=== PATIENT | female | born 1980 | race Caucasian/White ===

== ENCOUNTER 2018-03-30 08:10 | Inpatient (IN) | payer OTHER ==
[2018-03-30 09:53] LABS: Hematocrit 39.9 % (30.3-42.9); Hemoglobin 12.9 gm/dl (10.1-14.3); Mean Corpuscular HGB Conc 33 % (30-34); Mean Corpuscular Hemoglobin 26 pg (28-32); Mean Corpuscular Volume 81 fl (79-97); Platelet Count 233 K/mm3 (140-440); Red Blood Count 4.93 M/mm3 (3.65-5.03); Red Cell Distribution Width 15.7 % (13.2-15.2)
[2018-03-30] MEDS: SUBLIMAZE IV PRN ×2 (09:54→13:30)
[2018-03-30] MEDS ORDERED: XYLOCAINE 2% INFILTRATI NR (10:00)
[2018-03-30] MEDS ORDERED: POLYCILLIN/NS 2 GM/100 ML 2 GM/100 ML BAG IV ONE (10:00)
[2018-03-30] MEDS ORDERED: PITOCin/NS 30 UNIT/500ML 30 UNITS/500 ML BAG IV SCH ×2 (10:00→11:00)
[2018-03-30] MEDS ORDERED: MINERAL OIL PO PRN ×2 (10:00→10:30)
[2018-03-30] MEDS ORDERED: STADOL IV PRN (10:00)
[2018-03-30] MEDS ORDERED: BRETHINE IVP PRN (10:00)
[2018-03-30] MEDS ORDERED: BRETHINE SUB-Q PRN (10:00)
[2018-03-30] MEDS ORDERED: LACTATED RINGERS 1,000 ML IV SCH (10:00)
--- NOTE | 2018-03-30 10:08 | History and Physical Report ---
History of Present Illness Date of examination: 03/30/18 Date of admission: 03/30/18 09:11 Chief complaint: Intense labor Pains History of present illness: Early entry to care, care complicated by AMA and abnormal Quad screen (+Downs): did not go to consult, also had a abnormal 1hour GTT; followed by a normal 3 hour GTT. 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) Family/Genetic History: other (sister: kidney dx) Social history: no significant social history, - Obstetrical History Expected Date of Delivery: 03/31/18 Actual Gestation: 39 Week(s) 6 Day(s) : 5 Para: 4 Hx # Term Pregnancies: 4 Number of Living Children: 4 Medications and Allergies Allergies Allergy/AdvReac Type Severity Reaction Status Date / Time No Known Allergies Allergy Verified 03/30/18 09:40 Home Medications Medication Instructions Recorded Confirmed Last Taken Type 19 Chewable 1 caplet PO DAILY 03/30/18 03/30/18 1 Day Ago History ~03/29/18 1 Active Meds: Active Medications Butorphanol Tartrate (Stadol) 2 mg IV Q2H PRN PRN Reason: Pain , Severe (7-10) Ephedrine Sulfate (Ephedrine Sulfate) 10 mg IV Q2M PRN PRN Reason: Hypotension Fentanyl (Sublimaze) 100 mcg IV Q2H PRN PRN Reason: Labor Pain Last Admin: 03/30/18 09:54 Dose: 100 mcg Ampicillin Sodium (Polycillin/Ns 2 Gm/100 Ml) 2 gm in 100 mls @ 100 mls/hr IV ONCE ONE; Protocol Stop: 03/30/18 10:59 Last Admin: 03/30/18 09:45 Dose: 100 mls/hr Lactated Ringer's (Lactated Ringers) 1,000 mls @ 125 mls/hr IV DIRECT IVORY Last Admin: 03/30/18 09:45 Dose: 125 mls/hr Oxytocin/Sodium Chloride (Pitocin/Ns 20 Unit/1000ml Drip) 20 units in 1,000 mls @ 125 mls/hr IV DIRECT IVORY Oxytocin/Sodium Chloride (Pitocin/Ns 30 Unit/500ml) 30 units in 500 mls @ 1 mls /hr IV TITR IVORY; Protocol Lidocaine (Xylocaine 2%) 20 ml INFILTRATI ONCE NR Stop: 03/31/18 09:59 Mineral Oil (Mineral Oil) 30 ml PO QHS PRN PRN Reason: Constipation Terbutaline Sulfate (Brethine) 0.25 mg SUB-Q ONCE PRN PRN Reason: Hyperstimulation/Hypertonicity Terbutaline Sulfate (Brethine) 0.25 mg IVP ONCE PRN PRN Reason: Hyperstimulation/Hypertonicity Review of Systems All systems: negative - Vital Signs Vital signs: Vital Signs Pulse Pulse Ox 97 H 97 03/30/18 08:31 03/30/18 08:31 Temp Pulse Resp BP Pulse Ox 98.2 F 88 18 119/63 97 03/30/18 08:43 03/30/18 09:44 03/30/18 09:54 03/30/18 09:44 03/30/18 08:46 - Physical Exam Breasts: Positive: normal Cardiovascular: Regular rate Abdomen: Positive: normal appearance, normal bowel sounds Genitourinary (Female): Positive: normal external genitalia, normal perenium Vagina: Positive: normal moisture Uterus: Positive: enlarged - Obstetrical FHR: category 1 Uterine Contraction Monitor Mode: External Cervical Dilatation: 6 (Vyx) Cervical Effacement Percentage: 70 station: -2 Uterine Contraction Frequency (min): 2-3 Uterine Contraction Pattern: Regular Uterine Tone Measurement Phase: Resting Uterine Contraction Intensity: Moderate Results Result Diagrams: 03/30/18 09:15 Abnormal lab results 03/30/18 Range/Units 09:15 WBC 16.2 H (4.5-11.0) K/mm3 MCH 26 L (28-32) pg RDW 15.7 H (13.2-15.2) % All other labs normal. Assessment and Plan A: IUP @ 39 6/7 Weeks Active Labor Category I Tracing AMA GBS Unknown P: Admit to L&D per Routine Orders GBS Prophylaxis Pitocin Augmentation
[2018-03-30] MEDS ORDERED: ZOFRAN IV PRN (10:30)
[2018-03-30] MEDS ORDERED: NARCAN 0.4 MG/1 ML IV PRN (10:30)
[2018-03-30] MEDS ORDERED: BENADRYL PO PRN (12:58)
[2018-03-30] MEDS ORDERED: TUCKS PAD TP PRN (12:58)
[2018-03-30] MEDS ORDERED: NORCO 5/325 PO PRN (12:58)
[2018-03-30] MEDS ORDERED: LANSINOH TP PRN (12:58)
[2018-03-30] MEDS ORDERED: DULCOLAX PR PRN (12:58)
[2018-03-30] MEDS ORDERED: SODIUM CHLORIDE FLUSH SYRINGE 10 ML IV NR (13:00)
--- NOTE | 2018-03-30 13:12 | Procedure Note ---
OB Delivery Note - Delivery Date of Delivery: 03/30/18 (1229) Surgeon: TANNER JOHNS Estimated blood loss: 200cc - Vaginal Delivery presentation: vertex Delivery position: OA Intrapartum events: none Delivery induction: none Delivery augmentation: pitocin Delivery monitor: external FHT, external uterine Route of delivery: Delivery placenta: spontaneous Delivery cord: nuchal cord, 3 umbilical vessels Episiotomy: none Delivery laceration: 1st degree Delivery repair: vicryl Anesthesia: local Delivery comments: of a live 9'7 male infant over a 1st degree perineal laceration under IV pain control with Apgars of 8 and 9 at 1229 on 03/30/2018. Nuchal cord x 2, easily manually reduced on the perineum prior to delivery of the anterior shoulder. directly to maternal abd/chest, skin to skin contact. Spontaneous delivery of placenta complete and intact with Mejia side presenting at 1238. Fundus is firm and midline located 4 below the U, Lochia is scant. Perineal laceration repaired with 2-0 Vicryl on a SH under local 1% Lidocaine. GBS Prophylaxis x1. Delayed cord clamping and cutting; Cord cut by the father of the baby. - Infant A at 1 minute: 8 at 5 minutes: 9 Gender: Male (9'7)
[2018-03-30] MEDS: PITOCin/NS 20 UNIT/1000ML DRIP 20 UNITS/1,000 ML BAG IV SCH ×2 (13:32→14:50)
[2018-03-30] MEDS ORDERED: AMPICILLIN/NS 1 GM/50 ML 1 GM/50 ML BAG IV SCH (14:00)
[2018-03-30] MEDS: MOTRIN PO SCH ×2 (18:10→23:43)
[2018-03-31 00:40] LABS: Hematocrit 34.7 % (30.3-42.9); Hemoglobin 11.6 gm/dl (10.1-14.3)
[2018-03-31] MEDS: MOTRIN PO SCH ×3 (05:34→18:52)
--- NOTE | 2018-03-31 09:14 | Progress Note ---
Assessment and Plan - Patient Problems (1) Status post normal vaginal delivery Current Visit: Yes Status: Acute Plan to address problem: PPD 1 - stable Continue routine orders Anticipate discharge later today or in 24 hours Follow-up at [facility] in 6 weeks for exam Subjective - Subjective Date of service: 03/31/18 Principal diagnosis: PPD #1; s/p Patient reports: appetite normal, voiding normally, pain well controlled, ambulating normally : doing well, other (breast and bottle feeding) Objective - Vital Signs Latest vital signs: Vital Signs Temp Pulse Resp BP BP Pulse Ox 03/31/18 00:26 98.1 F 84 20 113/69 03/30/18 21:00 96.9 F L 85 16 126/69 98 03/30/18 16:36 98.2 F 91 H 18 112/58 97 03/30/18 14:03 98.2 F 22 100/47 03/30/18 13:36 94 H 121/63 03/30/18 13:30 18 03/30/18 13:21 102 H 135/70 03/30/18 13:06 107 H 127/61 03/30/18 12:51 86 129/56 03/30/18 12:39 100 H 138/74 03/30/18 12:01 94 H 131/75 03/30/18 12:00 98.1 F 18 03/30/18 09:54 18 03/30/18 09:44 88 119/63 Intake and Output 03/30/18 03/31/18 03/31/18 23:59 07:59 15:59 Intake Total 600 Output Total 800 800 Balance -800 -200 Intake: Intake, Free Water 600 Output: Urine 800 800 Void 800 800 Other: Total, Output Amount 800 400 # Voids Void 1 - Exam Abdomen: Present: normal appearance, soft Vulva: both: normal Uterus: Present: fundal height at umbilicus Extremities: Present: normal - Labs Labs: Abnormal lab results 03/30/18 Range/Units 09:15 WBC 16.2 H (4.5-11.0) K/mm3 MCH 26 L (28-32) pg RDW 15.7 H (13.2-15.2) %
[2018-03-31] MEDS ORDERED: M-M-R II VACCINE SUB-Q ONE (22:00)
[2018-04-01] MEDS: MOTRIN PO SCH (01:00)
[2018-04-01] MEDS ORDERED: M-M-R II VACCINE SUB-Q ONE (06:00)
[2018-04-01 08:37] VITALS: BP 110/62
--- NOTE | 2018-04-01 10:19 | Progress Note ---
Assessment and Plan A: day 2 S/P spontaneous vaginal delivery. P: Discharge patient home today. discharge instructions and warning signs discussed with patient. Advised patient to continue her vitamins and iron at home (patient states she has plenty of these at home). Advised patient to avoid lifting and heavy housework, avoid IC, and avoid driving. Advised patient to follow up at [facility] in 6 weeks. Pt. voiced understanding of all instructions. Subjective - Subjective Date of service: 04/01/18 Principal diagnosis: PPD #2; s/p Interval history: day 2 S/P spontaneous vaginal delivery. Doing well. Desires discharge today. Patient is voiding without difficulty. She reports small amount of lochia and denies clots. Patient is tolerating a regular diet without nausea or vomiting. She is ambulating well. Patient is bottlefeeding. She is considering an IUD for control when she comes back to the office. Patient denies headache, cough, chest pain, shortness of breath, leg pain, heavy vaginal bleeding, or any other problems. Patient reports: appetite normal, voiding normally, pain well controlled, flatus , ambulating normally : doing well Objective - Vital Signs Latest vital signs: Vital Signs Temp Pulse Resp BP Pulse Ox 04/01/18 08:33 98.3 F 73 18 110/62 97 04/01/18 01:55 98.2 F 64 18 129/69 99 04/01/18 01:00 18 03/31/18 17:13 98.6 F 71 18 119/64 97 03/31/18 11:53 98.5 F 83 20 99/62 97 Intake and Output 03/31/18 04/01/18 04/01/18 23:59 07:59 15:59 Intake Total 240 360 Output Total 200 Balance 40 360 Intake: Oral 240 Intake, Free Water 360 Output: Urine 200 Void 200 Other: Intake, Other Source Saline Solution Total, Intake Amount 240 Total, Output Amount 200 # Voids Void 1 1 # Bowel Movements 0 - Exam Cardiovascular: Present: Regular rate, Normal S1, Normal S2 Lungs: Present: Clear to auscultation Abdomen: Present: normal appearance, soft, normal bowel sounds. Absent: distention, tenderness, guarding, rigidity Uterus: Present: normal, firm, fundal height below umbilicus. Absent: bogginess , tenderness Extremities: Present: normal. Absent: tenderness, edema
--- NOTE | 2018-04-01 10:24 | Discharge Summary ---
Providers - Providers Date of Admission: 03/30/18 09:11 Date of discharge: 04/01/18 Attending physician: JAN MOORE MD Primary care physician: JAN MOORE MD Hospitalization Reason for admission: active labor Delivery: Episiotomy: none Laceration: none Other procedures: none complications: none Discharge diagnosis: IUP at term delivered [place] baby: male Pertinent studies: Labs Hospital course: Normal hospital course. Condition at discharge: Good Disposition: DC-01 TO HOME OR SELFCARE - Discharge Diagnoses (1) Term delivered Status: Acute Plan - Provider Discharge Summary Activity: routine, no sex for 6 weeks, no heavy lifting 4 weeks, no strenuous exercise Diet: routine Instructions: routine Additional instructions: Call your doctor immediately for: * Fever > 100.5 * Heavy vaginal bleeding ( >1 pad per hour) * Severe persistent headache * Shortness of breath * Reddened, hot, painful area to leg or breast - Follow up plan Follow up: JAN MOORE MD [Primary Care Provider] - 6 Weeks
== END 2018-04-01 20:50 | disposition home or self-care (01) | DRG 807 ==
LOC: TRG 08:10 → LD 09:11 → OB 15:01
PROVIDERS: ADMIT Obstetrics & Gynecology; ATTEND Obstetrics & Gynecology
PROC: 10E0XZZ Delivery of Products of Conception, External Approach (ICD-10-PCS; principal; 2018-03-30)
PROC: 0HQ9XZZ Repair Perineum Skin, External Approach (ICD-10-PCS; 2018-03-30)
DX: O69.81X0 Labor and delivery complicated by cord around neck, without compression, not applicable or unspecified (principal); Z37.0 Single live birth; O70.0 First degree perineal laceration during delivery; Z3A.39 39 weeks gestation of pregnancy
CPT/HCPCS: 36415; 85014; 85018; 85027; 86592; 86850; 86900; 86901; 90471; A6250; J0290; J2590; J3010; J7120